=== PATIENT | female | born 1965 | race African-American/Black ===

== ENCOUNTER 2020-02-10 08:56 | Outpatient (CLI) | payer BC ==
--- NOTE | 2020-02-10 11:06 | MRI ---
EXAM: MRI right foreleg with and without IV contrast PROVIDED CLINICAL HISTORY: Mass COMPARISON: 10/18/2014 FINDINGS: There is a circumscribed, oval masslike area of signal alteration within the subcutaneous adipose lay er of the lateral proximal foreleg in the region of palpable concern as marked on the skin surface by the technologist with a vitamin E tablet. This measures approximately 1.8 x 1.1 cm in greatest transverse dimensions and approximately 2.8 cm i n craniocaudal dimension. This is increased in size with respect to the prior examination at which time it measured approximately 11 x 9 mm in greatest transverse dimensions. This demonstrates predomi nantly increased signal intensity on fluid sensitive sequences with a nodular focus of signal intensity similar to skeletal muscle at its cranial aspects, measuring about 12 mm. This nodular focu s demonstrates enhancement on the postcontrast images. There is thin peripheral contrast enhancement about the circumference of the mass as well. This is apparently entirely confined to the subcutaneous adipose layer with a well-defined though thin fat plane interposed between the mass and the peroneal musculature. Regional marrow and muscular signal appear normal. No additional subcutaneous signal abnormality is e vident. The courses of the regional major neurovascular structures appear unremarkable. IMPRESSION: Interval enlargement of mass within the subcutaneous adipose layer of the lateral proximal foreleg, d emonstrating an enhancing nodular component suspicious for neoplasm.
[2020-02-10] MEDS ORDERED: Magnevist 469MG/ML 20 ML VIAL ONE (11:25)
== END 2020-02-10 08:57 | disposition home or self-care (01) ==
LOC: BICMRI 08:56
PROVIDERS: ATTEND Orthopaedic Surgery
DX: R22.41 Localized swelling, mass and lump, right lower limb (principal)
CPT/HCPCS: 82565; A9579

== ENCOUNTER 2023-07-10 14:59 | Outpatient (CLI) | payer BC | END 2023-07-10 15:00 | disposition home or self-care (01) | LOC: SCSMRI 14:59 | PROVIDERS: ATTEND Orthopaedic Surgery | DX: M48.062 Spinal stenosis, lumbar region with neurogenic claudication (principal); M51.36 Other intervertebral disc degeneration, lumbar region | CPT/HCPCS: 72148 ==